=== PATIENT | male | born 1960 | race Hispanic/Latino ===

== ENCOUNTER → 2018-07-15 | Day surgery (SDC) | payer SELFPAY ==
[~2018-07-15] MED LIST: ATORVASTATIN CA10 MG PO; FENTANYL CITRATE/PF 100MCG/2 ML INJ ONE; MIDAZOLAM HCL 2 MG/2 ML VIAL ONE; MULTI-VITAMIN1 EACH PO; OR PHACO EYE KIT ONE; PREOP PHACO EYE KIT ONE
--- OUTSIDE RECORDS SUMMARY | 2018-07-15 08:52 | XMS REPORT ---
[facility] Unknown Phone Unavailable Care Team Providers Care Side Laster Tack Name Role Phone Unavailable Unavailable Problems This patient has no known problems. Allergies, Adverse Reactions, Alerts This patient has no known allergies or adverse reactions. Medications This patient has no known medications. Encounters Start Date/Time End Date/Time Encounter Type Admission Type Attending [facility] Care Facility Care Department Encounter ID 2017-05-28 07:33:01 2017-05-28 07:33:01 Emergency [facility] [id number] 2017-05-28 04:04:34 2017-05-28 04:04:34 Emergency [facility] [id number] 2017-05-27 00:00:00 2017-05-27 00:00:00 Outpatient [facility] [id number]
[2018-07-15 12:01] VITALS: BP 125/75
--- NOTE | 2018-07-16 08:36 | Operative Report ---
DATE OF PROCEDURE: July 15, 2018 PREOPERATIVE DIAGNOSIS: Dense visually significant cataract to the left eye. POSTOPERATIVE DIAGNOSIS: Dense visually significant cataract to the left eye. PROCEDURE: Complicated phacoemulsification with posterior chamber intraocular lens. ANESTHESIA: MAC. COMPLICATIONS: None. LENS: Howard SN60WF 21.5 diopter lens. Patient was taken to the operating room where the patient had tetracaine drops placed in the eye. The patient's eye was prepped and draped in the usual ophthalmic way. Lid speculum was placed in the eye. A side-port incision was made. Then 0.2 mL of 1 lidocaine preservative-free was injected into the anterior chamber. Once this was done, an air bubble was also injected in the anterior chamber and Trypan blue dye was used to stain the capsule secondary to dense luminescent cataract. Excess dye was irrigated out with BSS solution. Viscoelastic was placed in the anterior chamber. A keratome was used to make a temporary cortical incision. Cystotomy Utrata forceps were used to create an anterior capsulorrhexis without any complications. Hydrodissection was then performed. Phacoemulsification probe was placed in the eye and the nucleus was phacoemulsified using the technique. Irrigation-aspiration hand piece was then used to remove any residual cortical material. Viscoelastic was placed in the capsular bag. An Howard SN60WF 21.5 diopter lens was placed in the bag without any complications. The irrigation-aspiration hand piece was used to remove any residual viscoelastic material from within the eye. Miostat was injected in the anterior chamber. The wound was checked to make sure there was no evidence of leakage. Two drops of Vigamox were placed in eye. Once this was done, the patient had Maxitrol ointment, patch and Broussard shield placed in the eye. Patient tolerated the procedure well, and was taken to the recovery room in good condition. Patient will be seen in my office. Job#: [id number] DAISY
== END | disposition home or self-care (01) ==
LOC: OR 08:50
PROVIDERS: ATTEND Ophthalmology
DX: H25.12 Age-related nuclear cataract, left eye (principal); E11.9 Type 2 diabetes mellitus without complications; I10 Essential (primary) hypertension
CPT/HCPCS: 66982; J2250; V2632